=== PATIENT | male | born 1955 | race Caucasian/White ===

== ENCOUNTER 2017-07-25 20:20 | Emergency (ER) | payer BC, OTHER ==
[2017-07-25 22:50] LABS: ABS Basophils 0.1 10^3/ul (0-0.2); ABS Eosinophils 0.1 10^3/ul (0-0.6); ABS Lymphocytes 1.4 10^3/ul (1.0-4.8); ABS Monocytes 0.9 10^3/ul (0-0.8); ABS Neutrophils 7.9 10^3/ul (1.5-7.7); ABS Nucleated RBC 0 10^3/ul; Hematocrit 44 % (42-52); Hemoglobin 14.8 g/dl (14.0-18.0); Lymphocyte % 13.9 % (25-47); Mean Corpuscular HGB Conc 33 g/dl (31-36); Mean Corpuscular Hemoglobin 31 pg (27-31); Mean Corpuscular Volume 92 fL (80-94); Mean Platelet Volume 7.7 um3 (7.4-10.4); Nucleated Red Blood Cells % 0.1; Platelet Count 243 10^3/ul (150-450); Red Blood Count 4.82 10^6/ul (4.0-5.4); Red Cell Distribution Width 14 % (10.5-15); White Blood Count 10.4 10^3/ul (3.5-10.8)
[2017-07-25 22:59] LABS: INR 0.87 (0.77-1.02)
[2017-07-25 23:14] LABS: EGFR Non-African American 79.1 (>60)
[2017-07-25] MEDS ORDERED: Labetalol IV* 5 MG/ML 20 ML VIAL IV PUSH ONE (23:31)
[2017-07-26 00:28] VITALS: BP 155/90
--- NOTE | 2017-07-26 00:39 | ED ---
Omid Horner Gabriel, scribed for Avani Rico MD on 07/25/17 at 2230 . HPI Chest Pain - HPI Summary HPI Summary: This patient is a 62 year old M presenting to [facility] accompanied by his with a chief complaint of elevated BP. Pt had chest tightness that occurred at 1900, he describes it as similar to indigestion, and lasting 45 minutes. The patient rates the pain 0/10 in severity. Symptoms alleviated by belching. Patient reports dizziness. Patient denies n/v and diaphoresis. - History of Current Complaint Chief Complaint: EDChestPainROMI Time Seen by Provider: 07/25/17 20:53 Hx Obtained From: Patient Onset/Duration: Resolved Timing: Intermittent, Lasting Minutes - 45 Initial Severity: Mild Current Severity: None Pain Intensity: 0 Pain Scale Used: 0-10 Numeric Chest Pain Location: Diffuse Chest Pain Radiates: No Associated Signs and Symptoms: Positive: Negative - n/v and diaphoresis., Dizziness - Allergy/Home Medications Allergies/Adverse Reactions: Allergies Allergy/AdvReac Type Severity Reaction Status Date / Time MS Cat Hair Extract Allergy Unknown Verified 02/15/16 11:49 [Cat Hair Extract] Reaction Details MS Dust Mite Extract Allergy Unknown Verified 02/15/16 11:49 [Dust Mite Extract] Reaction Details MS Molds & Smuts Allergy Unknown Verified 02/15/16 11:49 [Molds & Smuts] Reaction Details MS Pollen Extract Allergy Unknown Verified 02/15/16 11:49 [Pollen Extract] Reaction Details Home Medications: Home Medications Albuterol Sulfate [Ventolin Hfa] 07/25/17 [History] Aspirin EC TAB* [Ecotrin EC Low Dose 81 MG*] 81 mg PO DAILY 07/25/17 [History Confirmed 07/25/17] LoraTADine TAB(NF) [Claritin 10 MG TAB(NF)] 10 mg PO DAILY 07/25/17 [History Confirmed 07/25/17] Multivitamins/Minerals TAB* [Theragran/minerals TAB*] 1 tab PO DAILY 07/25/17 [ History Confirmed 07/25/17] PMH/Surg Hx/FS Hx/Imm Hx Infectious Disease History: No Infectious Disease History: Denies: Traveled Outside the [place] in Last 30 Days - Social History Alcohol Use: Weekly Alcohol Amount: Drinks beer 2-3 times a week. Recreationally Substance Use Type: Reports: None Smoking Status (MU): Current Every Day Smoker Review of Systems Negative: Skin Diaphoresis Positive: Chest Pain, Other - elevated BP Negative: Vomiting, Nausea Neurological: Other - dizziness All Other Systems Reviewed And Are Negative: Yes Physical Exam - Summary Physical Exam Summary: VITAL SIGNS: Reviewed. GENERAL: Patient is a well-developed and nourished male who is lying comfortable in the stretcher. Patient is not in any acute respiratory distress. HEAD AND FACE: No signs of trauma. No ecchymosis, hematomas or skull depressions. No sinus tenderness. EYES: PERRLA, EOMI x 2, No injected conjunctiva, no nystagmus. EARS: Hearing grossly intact. Ear canals and tympanic membranes are within normal limits. MOUTH: Oropharynx within normal limits. NECK: Supple, trachea is midline, no adenopathy, no JVD, no carotid bruit, no c- spine tenderness, neck with full ROM. CHEST: Symmetric, no tenderness at palpation LUNGS: Clear to auscultation bilaterally. No wheezing or crackles. CVS: Regular rate and rhythm, S1 and S2 present, no murmurs or gallops appreciated. ABDOMEN: Soft, non-tender. No signs of distention. No rebound no guarding, and no masses palpated. Bowel sounds are normal. EXTREMITIES: FROM in all major joints, no edema, no cyanosis or clubbing. NEURO: Alert and oriented x 3. No acute neurological deficits. Speech is normal and follows commands. SKIN: Dry and warm Triage Information Reviewed: Yes Vital Signs On Initial Exam: Initial Vitals Temp Pulse Resp BP Pulse Ox 97.2 F 78 18 198/126 98 07/25/17 20:30 07/25/17 20:30 07/25/17 20:30 07/25/17 20:30 07/25/17 20:30 Vital Signs Reviewed: Yes Diagnostics - Vital Signs Vital Signs Temp Pulse Resp BP Pulse Ox 07/25/17 21:44 70 152/99 96 07/25/17 21:16 73 167/97 98 07/25/17 21:14 75 96 07/25/17 20:30 97.2 F 78 18 198/126 98 - Laboratory Lab Results: Lab Results 07/25/17 07/25/17 07/25/17 Range/Units 22:44 22:44 22:44 WBC 10.4 (3.5-10.8) 10^3/ul RBC 4.82 (4.0-5.4) 10^6/ul Hgb 14.8 (14.0-18.0) g/dl Hct 44 (42-52) % MCV 92 (80-94) fL MCH 31 (27-31) pg MCHC 33 (31-36) g/dl RDW 14 (10.5-15) % Plt Count 243 (150-450) 10^3/ul MPV 7.7 (7.4-10.4) um3 Neut % (Auto) 76.2 (38-83) % Lymph % (Auto) 13.9 L (25-47) % Kimball % (Auto) 8.4 H (0-7) % Eos % (Auto) 1.0 (0-6) % Baso % (Auto) 0.5 (0-2) % Absolute Neuts (auto) 7.9 H (1.5-7.7) 10^3/ul Absolute Lymphs (auto) 1.4 (1.0-4.8) 10^3/ul Absolute Monos (auto) 0.9 H (0-0.8) 10^3/ul Absolute Eos (auto) 0.1 (0-0.6) 10^3/ul Absolute Basos (auto) 0.1 (0-0.2) 10^3/ul Absolute Nucleated RBC 0 10^3/ul Nucleated RBC % 0.1 INR (Anticoag Therapy) 0.87 (0.77-1.02) Sodium 139 (139-145) mmol/L Potassium 4.4 (3.5-5.0) mmol/L Chloride 106 (101-111) mmol/L Carbon Dioxide 26 (22-32) mmol/L Anion Gap 7 (2-11) mmol/L BUN 19 (6-24) mg/dL Creatinine 0.96 (0.67-1.17) mg/dL Est GFR ( Amer) 101.7 (>60) Est GFR (Non-Af Amer) 79.1 (>60) BUN/Creatinine Ratio 19.8 (8-20) Glucose 101 H (70-100) mg/dL Calcium 9.4 (8.6-10.3) mg/dL Magnesium 2.3 (1.9-2.7) mg/dL Total Bilirubin 0.30 (0.2-1.0) mg/dL AST 29 (13-39) U/L ALT 35 (7-52) U/L Alkaline Phosphatase 75 (34-104) U/L Total Creatine Kinase 52 (10-223) U/L Troponin I 0.00 (<0.04) ng/mL Total Protein 7.4 (6.4-8.9) g/dL Albumin 4.2 (3.2-5.2) g/dL Globulin 3.2 (2-4) g/dL Albumin/Globulin Ratio 1.3 (1-3) Result Diagrams: 07/25/17 22:44 07/25/17 22:44 Lab Statement: Any lab studies that have been ordered have been reviewed, and results considered in the medical decision making process. - Radiology CXR Radiology Interpretation Completed By: ED Physician - no acute inflitrate - EKG 20:32 Cardiac Rate: NL EKG Rhythm: Sinus Rhythm - at 74 BPM EKG Interpretation: Normal axis. Normal interval. No ischemic changes Re-Evaluation - Re-Evaluation First Eval Re-Evaluation Time: 23:32 Change: Unchanged Comment: Pt states he took his blood pressure 3 weeks ago and it was normal but it is elevated now. The patient feels fuzzy and will be given antihypertensive. Chest Pain Course/Dx - Course Assessment/Plan: This patient is a 62 year old M presenting to [facility] accompanied by his with a chief complaint of elevated BP. Pt had chest tightness that occurred at 1900, he describes it as similar to indigestion, and lasting 45 minutes. The patient rates the pain 0/10 in severity. Symptoms alleviated by belching. Patient reports dizziness. Patient denies n/v and diaphoresis. An EKG reveals Normal axis. Normal interval. No ischemic changes. CXR reveals, no acute infiltrate. Test results with no significant abnormalities. Dx atypical CP. Patient will be discharged and will schedule a stress test as an outpatient. The patient is agreeable with this plan. - Diagnoses Provider Diagnoses: Atypical chest pain Discharge - Sign-Out/Discharge Documenting (check all that apply): Discharge/Admit/Transfer - Discharge Plan Condition: Stable Disposition: HOME Prescriptions: Lisinopril 10 mg PO DAILY #30 tablet Patient Education Materials: Chest Pain (ED) Referrals: Nolan Mcqueen MD [Primary Care Provider] - 3 Days Additional Instructions: Schedule outpatient stress test as soon as possible. RETURN TO THE ER FOR ANY NEW OR WORSENING SYMPTOMS - Billing Disposition and Condition Condition: STABLE Disposition: HOME The documentation as recorded by the Omid hamilton Gabriel accurately reflects the service I personally performed and the decisions made by me, Avani Rico MD.
--- NOTE | 2017-07-26 07:14 | RAD ---
INDICATION: Chest pain. COMPARISON: Comparison is made with a prior study from June 11, 2004. TECHNIQUE: A portable view of the chest was obtained. FINDINGS: Cardiac and mediastinal contours appear to be within normal limits. The lungs are hyperinflated and clear. No pleural effusion is seen. IMPRESSION: FINDINGS CONSISTENT WITH COPD, NO EVIDENCE FOR ACUTE FINDING.
== END 2017-07-26 00:41 | disposition home or self-care (01) ==
LOC: ED 20:20
DX: R07.89 Other chest pain (principal); R42 Dizziness and giddiness; F17.200 Nicotine dependence, unspecified, uncomplicated
CPT/HCPCS: 36415; 71045; 80053; 82550; 83735; 84484; 85025; 85610; 93005; 96374; 99283

== ENCOUNTER 2020-12-14 10:33 | Inpatient (IN) ==
[2020-12-14 13:12] LABS: ABS Lymphocytes 1.1 10^3/ul (1.0-4.8); ABS Monocytes 0.5 10^3/ul (0-0.8); ABS Neutrophils 5.6 10^3/ul (1.5-7.7); Eosinophil % 0.3 %; Hematocrit 50 % (42-52); Hemoglobin 16.8 g/dL (14.0-18.0); Lymphocyte % 15.6 %; Mean Corpuscular HGB Conc 34 g/dL (31-36); Mean Corpuscular Hemoglobin 31 pg (27-31); Mean Corpuscular Volume 92 fL (80-94); Nucleated Red Blood Cells % 0.1; Platelet Count 249 10^3/uL (150-450); Red Cell Distribution Width 14 % (10-15); White Blood Count 7.2 10^3/uL (3.5-10.8)
[2020-12-14 13:26] LABS: ALT 39 U/L (7-52); AST 28 U/L (13-39); Albumin 4.7 g/dL (3.2-5.2); Albumin/Globulin Ratio 1.3 (1-3); Alkaline Phosphatase 77 U/L (35-149); Anion Gap 6 mmol/L (2-11); Blood Urea Nitrogen 18 mg/dL (6-24); CO2 Carbon Dioxide 30 mmol/L (22-32); Calcium 11.9 mg/dL (8.6-10.3); Chloride 101 mmol/L (101-111); Globulin 3.5 g/dL (2-4); Glucose 125 mg/dL (70-100); INR 1.04 (0.86-1.15); Potassium 4.5 mmol/L (3.5-5.0); Sodium 137 mmol/L (135-145); Total Protein 8.2 g/dL (6.4-8.9)
[2020-12-14 13:28] LABS: Troponin I 0.06 ng/mL (<0.03)
[2020-12-14] MEDS ORDERED: Al Hydrox/Mg Hydrox/Simet LIQ 30 ML UDC PO ONE (14:46)
[2020-12-14 17:33] LABS: Troponin I 0.23 ng/mL (<0.03)
[2020-12-14] MEDS ORDERED: Heparin DRIP 25,000 UNITS BAG 25,000 UNITS/500 ML BAG IV SCH (17:45)
[2020-12-14] MEDS ORDERED: Nitro 2% OINT (Nitroglycerin) 1 INCH/PAK TOPICAL ONE (17:47)
[2020-12-14] MEDS ORDERED: Albuterol HFA INHALER 8 gm MDI INH PRN (17:48)
[2020-12-14] MEDS ORDERED: Ondansetron 4 mg VIAL 2 MG/ML 2 ml VIAL IV PRN (17:54)
[2020-12-14] MEDS ORDERED: Heparin 5000 UNITS/ML 1 mL VIAL IV SCH (18:00)
[2020-12-14] MEDS ORDERED: Morphine 2 MG/ML SYRINGE IV ONE (18:22)
[2020-12-14] MEDS ORDERED: NS 0.9% 1000 ml BAG 1,000 ML IV SCH (18:45)
[2020-12-14 19:01] LABS: Cholesterol 224 mg/dL; HDL Cholesterol 45.4 mg/dL; LDL Cholesterol 143 mg/dL; Triglycerides 177 mg/dL
[2020-12-14] MEDS ORDERED: Iohexol 350 (CONTRAST) 500 ML MDV IV ONE (19:10)
[2020-12-14 19:20] LABS: Rapid COVID-19 Molecular Undetected (Undetected)
[2020-12-14 19:41] LABS: TSH Ultra Thyroid Stim Horm 1.31 mcIU/mL (0.34-5.60)
[2020-12-14 19:52] LABS: Vitamin D Total 25(OH) 32.9 ng/mL (20-50)
[2020-12-14 20:52] LABS: Troponin I 0.99 ng/mL (<0.03)
[2020-12-14] MEDS: Morphine 2 MG/ML SYRINGE IV PRN ×2 (21:00→23:55)
[2020-12-14] MEDS ORDERED: Morphine 2 MG/ML SYRINGE IV PRN (23:21)
[2020-12-14 23:40] LABS: Troponin I 2.08 ng/mL (<0.03)
[2020-12-14] MEDS: Mometasone/Formoter 200/5 MDI INH SCH (23:57)
[2020-12-15] MEDS ORDERED: NS 0.9% 500 ml BAG 500 ML IV ONE ×2 (00:30→00:31)
[2020-12-15] MEDS: Morphine 2 MG/ML SYRINGE IV PRN (01:48)
[2020-12-15 03:08] LABS: Troponin I 3.44 ng/mL (<0.03)
[2020-12-15 06:14] LABS: ABS Lymphocytes 1.5 10^3/ul (1.0-4.8); ABS Monocytes 0.7 10^3/ul (0-0.8); ABS Neutrophils 5.2 10^3/ul (1.5-7.7); Eosinophil % 0.1 %; Hematocrit 46 % (42-52); Hemoglobin 15.7 g/dL (14.0-18.0); Lymphocyte % 20.5 %; Mean Corpuscular HGB Conc 34 g/dL (31-36); Mean Corpuscular Hemoglobin 32 pg (27-31); Mean Corpuscular Volume 93 fL (80-94); Mean Platelet Volume 8.3 fL (7.4-10.4); Platelet Count 219 10^3/uL (150-450); Red Blood Count 4.97 10^6 /uL (4.18-5.48); Red Cell Distribution Width 14 % (10-15); White Blood Count 7.4 10^3/uL (3.5-10.8)
[2020-12-15 06:35] LABS: Troponin I 6.29 ng/mL (<0.03)
[2020-12-15 06:38] LABS: Anion Gap 9 mmol/L (2-11); Blood Urea Nitrogen 15 mg/dL (6-24); CO2 Carbon Dioxide 25 mmol/L (22-32); Calcium 9.7 mg/dL (8.6-10.3); Chloride 102 mmol/L (101-111); Glucose 122 mg/dL (70-100); Sodium 136 mmol/L (135-145)
[2020-12-15] MEDS ORDERED: fentaNYL 100 mcg/2 ml 50 MCG/ML VIAL ONE (08:24)
[2020-12-15] MEDS ORDERED: Midazolam 5 mg/5 ml VIAL 1 mg/ml 5 ml VIAL (5 mg) ONE (08:24)
[2020-12-15] MEDS ORDERED: VERAPAMIL 2.5 MG/ML 2 ML VIAL ** 5 mg/2 ml ONE (08:24)
[2020-12-15] MEDS ORDERED: Heparin 1,000 UNIT/ML 10 ml (10,000 UNITS) CATHLAB/DIALYSIS ONE ×2 (08:24→09:08)
[2020-12-15] MEDS ORDERED: nitroGLYCERIN DRIP 25,000 MCG/250 ML BTL ONE (08:25)
[2020-12-15] MEDS ORDERED: Lidocaine 1% VIAL 10 MG/ML VIAL ONE (08:25)
[2020-12-15] MEDS ORDERED: Iohexol 350 (CONTRAST) 200 ML MDV IV ONE ×3 (08:25→09:43)
[2020-12-15] MEDS ORDERED: Heparin 2 UNITS/ML 1000 mls 3,000 ML IV ONE (08:25)
[2020-12-15] MEDS ORDERED: niCARdipine 0.1MG/ML IVPREMIX 20 MG/200 ML BAG IV ONE (08:37)
[2020-12-15] MEDS ORDERED: Eptifibatide IV (Load dose) 2 MG/ML 10 ml VIAL ONE (08:58)
[2020-12-15] MEDS ORDERED: Prasugrel 10 mg TAB (NF) ONE (09:20)
[2020-12-15] MEDS ORDERED: NS 0.9% 1000 ml BAG 1,000 ML IV SCH (10:15)
[2020-12-15] MEDS: Mometasone/Formoter 200/5 MDI INH SCH ×2 (10:47→19:31)
[2020-12-16 04:29] LABS: ABS Monocytes 0.8 10^3/ul (0-0.8); ABS Neutrophils 4.3 10^3/ul (1.5-7.7); Eosinophil % 0.7 %; Hematocrit 42 % (42-52); Hemoglobin 14.3 g/dL (14.0-18.0); Lymphocyte % 28.1 %; Mean Corpuscular HGB Conc 34 g/dL (31-36); Mean Corpuscular Hemoglobin 31 pg (27-31); Mean Corpuscular Volume 92 fL (80-94); Mean Platelet Volume 7.8 fL (7.4-10.4); Nucleated Red Blood Cells % 0.1; Platelet Count 208 10^3/uL (150-450); Red Cell Distribution Width 14 % (10-15); White Blood Count 7.2 10^3/uL (3.5-10.8)
[2020-12-16 05:04] LABS: Calcium 8.8 mg/dL (8.6-10.3); Potassium 3.9 mmol/L (3.5-5.0)
[2020-12-16] MEDS: Mometasone/Formoter 200/5 MDI INH SCH (08:37)
[2020-12-16] MEDS ORDERED: CMCS: Prasugrel 10 mg TAB (NF) PO SCH (09:00)
[2020-12-16] MEDS ORDERED: Ondansetron 4 mg VIAL 2 MG/ML 2 ml VIAL IV PRN (09:04)
[2020-12-16] MEDS ORDERED: Albuterol HFA INHALER 8 gm MDI INH PRN (09:06)
[2020-12-16] MEDS ORDERED: Morphine 2 MG/ML SYRINGE IV PRN (09:07)
[2020-12-16 09:19] VITALS: BP 106/73
[2020-12-16] MEDS ORDERED: Mometasone/Formoter 200/5 MDI INH SCH (21:00)
== END 2020-12-16 11:37 | disposition home or self-care (01) | DRG 247 ==
LOC: ED 10:33 → ICU 12-15 10:21 → SUATTDRO 12-15 10:21
PROVIDERS: ADMIT Family Medicine; ATTEND Internal Medicine